=== PATIENT | male | born 1965 | race Caucasian/White ===

== ENCOUNTER → 2021-07-21 11:43 | Outpatient (BNVA) | payer BC, SELFPAY | PROVIDERS: PCP Nurse Practitioner Family; Visit Provider Nurse Practitioner Family | DX: Z00.00 Encounter for general adult medical examination without abnormal findings (principal); K21.9 Gastro-esophageal reflux disease without esophagitis; Z13.220 Encounter for screening for lipoid disorders; M25.50 Pain in unspecified joint; Z12.5 Encounter for screening for malignant neoplasm of prostate; W57.XXXA Bitten or stung by nonvenomous insect and other nonvenomous arthropods, initial encounter; N41.9 Inflammatory disease of prostate, unspecified | CPT/HCPCS: 80053; 80061; 85651; 86618; 86666; 86757; G0103 ==